=== PATIENT | female | born 2000 | race Two or more races ===

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

== ENCOUNTER 2024-08-06 17:36 | Emergency (ER) | payer MEDICAID, OTHER ==
[~2024-08-06] VITALS: Ht 165.1 cm; Wt 110.0 kg
[~2024-08-06 17:36] MED LIST changes: -LEVO500T21 PO; +LEVO500T31 PO
[2024-08-06 17:46] VITALS: BP 151/88; PULSE 103; RESP 16; TEMP 97.1; O2SAT 96
[2024-08-06] MEDS: DexAMETHasone SOD PHOS 10MG/1ML VIAL INJ IM ONE (19:11)
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
[2024-08-06] MEDS ORDERED: METH4PAK PO (19:31)
[2024-08-06] MEDS ORDERED: METH-1181 PO (19:31)
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
== END 2024-08-06 19:40 | disposition home or self-care (01) ==
LOC: ER 17:36
DX: S33.5XXA Sprain of ligaments of lumbar spine, initial encounter (principal); G35 Multiple sclerosis; Z79.899 Other long term (current) drug therapy; V49.88XA Car occupant (driver) (passenger) injured in other specified transport accidents, initial encounter; Y93.I9 Activity, other involving external motion; Y92.488 Other paved roadways as the place of occurrence of the external cause; Y99.8 Other external cause status
CPT/HCPCS: 72131; 96372; 99285; J1100